=== PATIENT | male | born 1950 | race Caucasian/White ===

== ENCOUNTER 2024-11-15 08:07 | Inpatient (IN) ==
[2024-11-15] MEDS ORDERED: IOPAMIDOL 100 ML BOTTLE IV ONE (08:08)
[2024-11-15 09:18] LABS: Basophils # (Auto) 0.02 K/mcL (0.00-0.30); Basophils % (Auto) 0.2 % (0.0-2.0); Eosinophils # (Auto) 0.01 K/mcL (0.00-0.70); Eosinophils % (Auto) 0.1 % (0.0-7.0); Hematocrit 33.2 % (40.1-51.0); Hemoglobin 11.0 g/dL (13.7-17.5); Lymphocytes # (Auto) 1.22 K/mcL (1.50-4.80); Lymphocytes % (Auto) 11.7 % (15.5-49.0); Mean Corpuscular HGB Conc 33.1 g/dL (31.0-36.0); Monocytes # (Auto) 0.76 K/mcL (0.10-0.90); Monocytes % (Auto) 7.3 % (1.0-12.0); Neutrophils % (Auto) 80.4 % (38.0-78.0); Platelet Count 259 K/mcL (140-440); RBC 3.22 M/mcL (4.63-6.08); WBC 10.5 K/mcL (4.5-11.0)
[2024-11-15 10:19] LABS: ALT/SGPT 10 U/L (<40); AST/SGOT 17 U/L (<40); Albumin 3.8 gm/dL (3.2-5.2); Albumin/Globulin Ratio 1.8 (1.0-2.3); Alkaline Phosphatase 62 U/L (39-117); Anion Gap 11.0 (8.0-16.0); Bilirubin,Total 0.8 mg/dL (0.1-1.0); Blood Urea Nitrogen 10 mg/dL (8-23); Calcium 8.3 mg/dL (8.6-10.4); Carbon Dioxide 22 mmol/L (22-30); Chloride 103 mmol/L (96-108); Globulin 2.1 gm/dL (2.2-3.7); Glucose 97 mg/dL (70-105); Potassium 4.1 mmol/L (3.3-5.1); Sodium 136 mmol/L (133-145)
[2024-11-15 10:56] LABS: INR 1.0 (0.9-1.1); Prothrombin Time 14.5 sec (11.9-14.5)
[2024-11-15 11:11] LABS: Bilirubin,Urine Negative (Negative); Color,Urine Yellow; Glucose,Urine (UA) Negative (Negative); Ketones,Urine Negative (Negative); Leukocyte Esterase,Urine Negative /uL (Negative); PH,Urine 5.5 (5.0-9.0); Protein,Urine Negative (Negative); Specific Gravity,Urine <= 1.005 (1.000-1.035); Urobilinogen,Urine Normal
[2024-11-15] MEDS ORDERED: LIDOCAINE 2% PF 5 ML VIAL ONE (11:32)
[2024-11-15] MEDS ORDERED: ONDANSETRON 4 MG/2 ML VIAL ONE (11:32)
[2024-11-15] MEDS ORDERED: DEXAMETHASONE 10 MG/ML VIAL ONE (11:32)
[2024-11-15] MEDS ORDERED: PROPOFOL 200 MG/20 ML VIAL IV ONE (11:32)
[2024-11-15] MEDS: ceFAZolin 2 GM in DEXTROSE 5% IN WATER 50 ML IV SCH (14:14)
[2024-11-15] MEDS ORDERED: fentaNYL 100 MCG/2 ML VIAL ONE (15:44)
[2024-11-15] MEDS ORDERED: fentaNYL 100 MCG/2 ML VIAL IV PRN (15:45)
[2024-11-15] MEDS ORDERED: diphenhydrAMINE 50 MG/ML VIAL IV PRN (15:45)
[2024-11-15] MEDS ORDERED: LACTATED RINGERS 1,000 ML IV SCH (15:45)
[2024-11-15] MEDS ORDERED: IPRATROPIUM/ALBUTEROL 3 ML AMPUL.NEB NEB PRN (15:45)
[2024-11-15] MEDS ORDERED: MEPERIDINE 25 MG/ML VIAL IV PRN (15:45)
[2024-11-15] MEDS ORDERED: NALOXONE HCL 0.4 MG/ML VIAL IV PRN (15:45)
[2024-11-15] MEDS ORDERED: LACTATED RINGERS 250 ML IV PRN (15:45)
[2024-11-15] MEDS ORDERED: ONDANSETRON 4 MG/2 ML VIAL IV PRN (15:45)
[2024-11-15] MEDS ORDERED: BISACODYL 10 MG SUPP.RECT PR PRN (16:14)
[2024-11-15] MEDS ORDERED: HYDROcodone/APAP 10/325MG TABLET PO PRN (16:14)
[2024-11-15] MEDS ORDERED: MAGNESIUM HYDROXIDE 30 ML ORAL.SUSP PO PRN (16:14)
[2024-11-15] MEDS ORDERED: POLYETHYLENE GLYCOL 3350 17 GM PACKET PO PRN ×2 (16:14→18:01)
[2024-11-15] MEDS ORDERED: BENZOCAINE/MENTHOL 1 LOZENGE PO PRN (16:14)
[2024-11-15] MEDS ORDERED: FLEETS ADULT 1 DOSE ENEMA PR PRN (16:14)
[2024-11-15] MEDS ORDERED: 0.9 % SODIUM CHLORIDE 1,000 ML IV SCH (16:15)
[2024-11-15] MEDS: ACETAMINOPHEN 1,000 MG/100 ML BAG IV ONE (16:53)
[2024-11-15] MEDS: METHOCARBAMOL 1,000 MG/10 ML VIAL IV PRN (16:57)
[2024-11-15] MEDS: HYDROmorphone 0.5 MG/0.5 ML SYRINGE IV PRN ×2 (17:20→18:47)
[2024-11-15] MEDS: 0.9 % SODIUM CHLORIDE 10 ML SYRINGE IV SCH (18:05)
[2024-11-15] MEDS: ACETAMINOPHEN 325 MG TABLET PO SCH (18:40)
[2024-11-15] MEDS: SENNOSIDES 1 TABLET PO SCH ×2 (21:35)
[2024-11-15] MEDS: ASPIRIN 81 MG TAB.CHEW PO SCH (21:35)
[2024-11-15] MEDS: METHOCARBAMOL 750 MG TABLET PO PRN (21:35)
[2024-11-15] MEDS: DOCUSATE SODIUM 100 MG CAPSULE PO SCH (21:36)
[2024-11-16 07:24] LABS: Basophils # (Auto) 0.01 K/mcL (0.00-0.30); Basophils % (Auto) 0.1 % (0.0-2.0); Eosinophils # (Auto) 0 K/mcL (0.00-0.70); Eosinophils % (Auto) 0 % (0.0-7.0); Hematocrit 30.9 % (40.1-51.0); Hemoglobin 10.4 g/dL (13.7-17.5); Lymphocytes # (Auto) 1.19 K/mcL (1.50-4.80); Lymphocytes % (Auto) 11.5 % (15.5-49.0); Mean Corpuscular HGB Conc 33.7 g/dL (31.0-36.0); Monocytes # (Auto) 0.83 K/mcL (0.10-0.90); Monocytes % (Auto) 8.0 % (1.0-12.0); Neutrophils % (Auto) 80.2 % (38.0-78.0); Platelet Count 281 K/mcL (140-440); RBC 3.05 M/mcL (4.63-6.08); WBC 10.3 K/mcL (4.5-11.0)
[2024-11-16] MEDS: ONDANSETRON 4 MG ODT TABLET SL PRN (10:56)
[2024-11-16] MEDS: buPROPion 150 MG TAB.XL.24H PO SCH (12:18)
[2024-11-16] MEDS: HYDROmorphone 0.5 MG/0.5 ML SYRINGE IV PRN (12:18)
[2024-11-16] MEDS: KETOROLAC 15 MG/ML VIAL IV PRN (14:06)
[2024-11-16] MEDS: ACETAMINOPHEN 1,000 MG/100 ML BAG IV SCH (16:29)
[2024-11-16] MEDS: ONDANSETRON 4 MG/2 ML VIAL IV PRN (18:47)
[2024-11-16] MEDS: PREGABALIN 150 MG CAPSULE PO SCH (21:13)
[2024-11-16] MEDS: ceFAZolin 2 GM in DEXTROSE 5% IN WATER 50 ML IV SCH (22:27)
[2024-11-17 05:56] LABS: Basophils # (Auto) 0.02 K/mcL (0.00-0.30); Basophils % (Auto) 0.3 % (0.0-2.0); Eosinophils # (Auto) 0.02 K/mcL (0.00-0.70); Eosinophils % (Auto) 0.3 % (0.0-7.0); Hematocrit 30.7 % (40.1-51.0); Hemoglobin 10.1 g/dL (13.7-17.5); Lymphocytes # (Auto) 1.38 K/mcL (1.50-4.80); Lymphocytes % (Auto) 19.5 % (15.5-49.0); Mean Corpuscular HGB Conc 32.9 g/dL (31.0-36.0); Monocytes # (Auto) 0.58 K/mcL (0.10-0.90); Monocytes % (Auto) 8.2 % (1.0-12.0); Neutrophils % (Auto) 71.6 % (38.0-78.0); Platelet Count 279 K/mcL (140-440); RBC 2.98 M/mcL (4.63-6.08); WBC 7.1 K/mcL (4.5-11.0)
[2024-11-17] MEDS: ACETAMINOPHEN 500 MG TABLET PO SCH (09:06)
[2024-11-17] MEDS: RIVAROXABAN 15 MG TABLET PO ONE (12:17)
[2024-11-18 07:46] VITALS: TEMP 97.2; O2SAT 99
== END 2024-11-18 13:10 | DRG 493 ==
LOC: ED 08:07 → SUR 12:31 → MEDSUR 17:50
PROVIDERS: ADMIT Internal Medicine; ATTEND Internal Medicine